=== PATIENT | female | born 1950 | race Caucasian/White ===

== ENCOUNTER 2024-08-10 08:40 | Day surgery (SDC) | payer OTHER ==
[~2024-08-10] VITALS: Ht 154.9 cm; Wt 119.2 kg
[2024-08-10] MEDS: OFLOXACIN 0.3 % (OCUFLOX) OPTH SOL 5ML OD ONE (06:00)
[2024-08-10] MEDS: LIDOCAINE 3.5 % 1ML OPHTH TOPICAL GEL OU ONE (06:00)
[~2024-08-10 08:40] MED LIST: AMIO200T49 PO; DULO1CAP5 PO; DULO1CAP6 PO; ELIQ5TAB PO; EZET10TA21 PO; FURO20TA2 PO; LANTINJ4 SC; LEVO25TA5 PO; LISI20TA33 PO; METF500T13 PO; METO1TAB32 PO; MIDAZOLAM INJ 2MG/2ML VIAL As Ordered ONE; OMEGCAP4 PO; OXYB5TAB14 PO; PANT40TA29 PO; PHENYLEPHRINE 10% OPHTH SOL 5ML OD PRN; SEMA1PEN2 SC; TURM500C PO
[2024-08-10] MEDS: TROPICAMIDE 1% OPHTH SOLN 15ML OD SCH (09:46)
[2024-08-10] MEDS: PHENYLEPHRINE 2.5% OPHTH SOL 2ML OD SCH (09:46)
[2024-08-10] MEDS: CYCLOPENTOLATE 1% OPHTH SOLN 2ML BTL OD SCH (09:46)
[2024-08-10] MEDS: LIDOCAINE 1% SDV 5ML VIAL As Ordered ONE (11:07)
[2024-08-10] MEDS: CEFUROXIME 1MG/0.1ML INTRACAMERAL INJ As Ordered ONE (11:10)
[2024-08-10] MEDS: BSS IRRIG/VANCO(10MG)/TOBRA(5MG)/EPINEPH(1:1000-0.5CC)500ML BAG-ORONLY As Ordered ONE (11:10)
[2024-08-10 11:20] VITALS: BP 172/80; TEMP 98; O2SAT 96
== END 2024-08-10 11:34 | disposition home or self-care (01) ==
LOC: M SDC 08:40
PROVIDERS: ATTEND Ophthalmology
DX: H25.11 Age-related nuclear cataract, right eye (principal); I48.91 Unspecified atrial fibrillation; I10 Essential (primary) hypertension; E78.5 Hyperlipidemia, unspecified; E11.9 Type 2 diabetes mellitus without complications; E03.9 Hypothyroidism, unspecified; Z79.01 Long term (current) use of anticoagulants; Z79.899 Other long term (current) drug therapy; R60.9 Edema, unspecified; K21.9 Gastro-esophageal reflux disease without esophagitis; R21 Rash and other nonspecific skin eruption; F32.A Depression, unspecified
CPT/HCPCS: 66984; J0697; J2250; V2632

== ENCOUNTER 2024-08-17 07:47 | Day surgery (SDC) | payer OTHER ==
[~2024-08-17] VITALS: Ht 160 cm; Wt 120.8 kg
[~2024-08-17 07:47] MED LIST changes: -PHENYLEPHRINE 10% OPHTH SOL 5ML OD PRN; +PHENYLEPHRINE 10% OPHTH SOL 5ML OS PRN
[2024-08-17] MEDS: PHENYLEPHRINE 2.5% OPHTH SOL 2ML OS SCH (08:08)
[2024-08-17] MEDS: TROPICAMIDE 1% OPHTH SOLN 15ML OS SCH (08:08)
[2024-08-17] MEDS: LIDOCAINE 3.5 % 1ML OPHTH TOPICAL GEL OU ONE (08:08)
[2024-08-17] MEDS: OFLOXACIN 0.3 % (OCUFLOX) OPTH SOL 5ML OS ONE (08:08)
[2024-08-17] MEDS: CYCLOPENTOLATE 1% OPHTH SOLN 2ML BTL OS SCH (08:08)
[2024-08-17] MEDS: DEXTROSE 50% 50ML SYRINGE IV STA (08:48)
[2024-08-17] MEDS: LIDOCAINE 1% SDV 5ML VIAL As Ordered ONE (09:37)
[2024-08-17] MEDS: CEFUROXIME 1MG/0.1ML INTRACAMERAL INJ As Ordered ONE (09:37)
[2024-08-17] MEDS: BSS IRRIG/VANCO(10MG)/TOBRA(5MG)/EPINEPH(1:1000-0.5CC)500ML BAG-ORONLY As Ordered ONE (09:38)
[2024-08-17 09:52] VITALS: BP 185/82
== END 2024-08-17 10:12 | disposition home or self-care (01) ==
LOC: M SDC 07:47
PROVIDERS: ATTEND Ophthalmology
DX: E11.36 Type 2 diabetes mellitus with diabetic cataract (principal); H25.12 Age-related nuclear cataract, left eye; I48.0 Paroxysmal atrial fibrillation; I10 Essential (primary) hypertension; E03.9 Hypothyroidism, unspecified; E78.00 Pure hypercholesterolemia, unspecified; E11.40 Type 2 diabetes mellitus with diabetic neuropathy, unspecified; Z79.01 Long term (current) use of anticoagulants; Z79.4 Long term (current) use of insulin; Z79.899 Other long term (current) drug therapy; Z79.890 Hormone replacement therapy; Z79.85 Long-term (current) use of injectable non-insulin antidiabetic drugs; R32 Unspecified urinary incontinence; K21.9 Gastro-esophageal reflux disease without esophagitis; Z88.5 Allergy status to narcotic agent; Z87.891 Personal history of nicotine dependence
CPT/HCPCS: 66984; J0697; J2250; V2632